=== PATIENT | male | born 1995 | race African-American/Black ===

== ENCOUNTER 2019-05-05 17:36 | Inpatient (IN) ==
[2019-05-05 18:03] LABS: Basophils # 0.1 K/mcL (0.0-0.2); Basophils % 1.5 %; Hematocrit 46.3 % (37.5-50.1); Hemoglobin 15.9 g/dL (12.9-16.9); Immature Granulocytes % 0.3 % (0-4); Immature Platelets 7.1 % (1.1-6.1); Lymphocytes # 1.4 K/mcL (0.6-4.6); Lymphocytes % 34.8 %; Mean Corpuscular HGB Conc 34.3 g/dL (31.6-35.5); Mean Corpuscular Hemoglobin 29.9 pg (28.0-33.3); Mean Corpuscular Volume 87.2 fL (83.0-100.0); Mean Platelet Volume 11.2 fL (9.4-12.4); Monocytes # 0.3 K/mcL (0.0-1.3); Monocytes % 7.9 %; Neutrophils # 2.1 K/mcL (1.6-8.9); Platelet Count 196 K/mcL (140-400); Red Blood Count 5.31 M/mcL (4.19-5.50); Red Cell Distribution Width 11.8 % (11.5-14.5); Segmented Neutrophils % 54.5 %; White Blood Count 3.9 K/mcL (4.3-11.1)
[2019-05-05 18:08] LABS: INR 1.2; Prothrombin Time 13.9 Seconds (9.4-12.1)
[2019-05-05 18:10] LABS: Activated Partial Thrombo Time 38.8 Seconds (26.0-36.0)
[2019-05-05 18:31] LABS: Alanine Aminotransferase 14 Units/L (7-52); Albumin 4.5 g/dL (3.5-5.7); Alkaline Phosphatase 45 Units/L (34-104); Aspartate Amino Transferase 15 Units/L (13-39); BUN/Creatinine Ratio 15 (6-26); Bilirubin,Direct 0.1 mg/dL (0.0-0.2); Bilirubin,Indirect 0.6 mg/dL (0.0-1.0); Bilirubin,Total 0.7 mg/dL (0.3-1.0); Blood Urea Nitrogen 15 mg/dL (6-20); Calcium 9.3 mg/dL (8.6-10.3); Carbon Dioxide 25 mEq/L (23-29); Chloride 103 mEq/L (98-107); Creatine Kinase 99 Units/L (30-223); Ethanol < 10 mg/dL (Less than 10); Globulin 2.2 g/dL (2.4-3.5); Glucose 134 mg/dL (70-105); Osmolality,Calculated 287 (280-300); Potassium 3.8 mEq/L (3.5-5.1); Sodium 137 mEq/L (136-145); Total Protein 6.7 g/dL (6.4-8.9); Troponin I < 0.03 ng/mL (< 0.04); eGFR For African Americans > 60 (> 60); eGFR For Non-African Americans > 60 (> 60)
[2019-05-05 18:40] LABS: Thyroid Stimulating Hormone 0.862 mcIU/mL (0.340-5.600)
[2019-05-05] MEDS ORDERED: Ammonia Inhalant AMPUL ONE (18:59)
[2019-05-05 19:10] LABS: Acetaminophen < 10 mcg/mL (10-20); Salicylate < 2.5 mg/dL (15.0-30.0)
[2019-05-05 19:57] LABS: Amphetamine Screen,Urine Negative ng/mL (Cutoff=1000); Barbiturate Screen,Urine Negative ng/mL (Cutoff=200); Benzodiazepines Screen,Urine Negative ng/mL (Cutoff=200); Cannabinoid Screen,Urine Negative ng/mL (Cutoff = 50); Cocaine Screen,Urine Negative ng/mL (Cutoff= 300); Opiate Screen,Urine Negative ng/mL (Cutoff=300); Phencyclidine Screen,Urine Negative ng/mL (Cutoff=25)
[2019-05-05 20:05] LABS: Bilirubin,Urine Negative (Negative); Blood,Urine Negative (Negative); Clarity,Urine Cloudy (Clear); Color,Urine Yellow (Yellow); Glucose,Urine (UA) Normal (Normal); Ketones,Urine Negative (Negative)
[2019-05-05 20:06] LABS: Leukocyte Esterase,Urine Moderate (Negative); Nitrite,Urine Negative (Negative); Protein,Urine Negative (Neg-Trace); Squamous Epithelial Cell,Urine Many per lpf (None-Few); Urobilinogen,Urine Normal (Normal); WBC,Urine 15-30 per hpf (0-3)
[2019-05-05 20:56] LABS: Bacteria,Urine None Seen per hpf (None-Few)
[2019-05-05] MEDS ORDERED: Ammonia Inhalant AMPUL IH ONE (21:10)
[2019-05-05] MEDS ORDERED: 0.9 % Sodium Chloride 1,000 ML ONE (23:51)
[2019-05-05] MEDS ORDERED: Naloxone 0.4 MG/ML INJ IVP ONE (23:54)
[2019-05-06] MEDS ORDERED: Ondansetron 4 MG/2 ML VIAL IVP PRN (01:01)
[2019-05-06] MEDS ORDERED: Naloxone 0.4 MG/ML INJ IVP PRN (01:01)
[2019-05-06] MEDS: 0.9 % Sodium Chloride 1,000 ML IVC SCH ×2 (01:31→08:38)
[2019-05-06] MEDS ORDERED: Lactulose 200 GM, Sodium Chloride IRRigation 700 ML RC ONE (01:50)
[2019-05-06 01:51] LABS: Hematocrit 44.5 % (37.5-50.1); Hemoglobin 15.5 g/dL (12.9-16.9); Mean Corpuscular HGB Conc 34.8 g/dL (31.6-35.5); Mean Corpuscular Hemoglobin 30.1 pg (28.0-33.3); Mean Corpuscular Volume 86.4 fL (83.0-100.0); Mean Platelet Volume 11.7 fL (9.4-12.4); Platelet Count 219 K/mcL (140-400); Red Blood Count 5.15 M/mcL (4.19-5.50); Red Cell Distribution Width 11.9 % (11.5-14.5); White Blood Count 3.9 K/mcL (4.3-11.1)
[2019-05-06 02:09] LABS: BUN/Creatinine Ratio 16 (6-26); Blood Urea Nitrogen 15 mg/dL (6-20); Calcium 9.1 mg/dL (8.6-10.3); Carbon Dioxide 26 mEq/L (23-29); Chloride 105 mEq/L (98-107); Chol/HDL Ratio 2.6 (0-4.9); Cholesterol 128 mg/dL (< 200); Glucose 83 mg/dL (70-105); HDL Cholesterol 50 mg/dL (40-59); LDL Cholesterol,Calculated 69 mg/dL (0-99); Magnesium 1.8 mg/dL (1.6-2.6); Osmolality,Calculated 286 (280-300); Phosphorous 4.7 mg/dL (2.7-4.5); Potassium 3.8 mEq/L (3.5-5.1); Sodium 138 mEq/L (136-145); Triglycerides 46 mg/dL (< 150); Troponin I < 0.03 ng/mL (< 0.04); eGFR For African Americans > 60 (> 60); eGFR For Non-African Americans > 60 (> 60)
[2019-05-07 05:36] LABS: Hematocrit 41.7 % (37.5-50.1); Mean Corpuscular HGB Conc 33.1 g/dL (31.6-35.5); Mean Corpuscular Hemoglobin 29.6 pg (28.0-33.3); Mean Corpuscular Volume 89.3 fL (83.0-100.0); Mean Platelet Volume 11.5 fL (9.4-12.4); Platelet Count 196 K/mcL (140-400); Red Blood Count 4.67 M/mcL (4.19-5.50); Red Cell Distribution Width 11.7 % (11.5-14.5); White Blood Count 3.3 K/mcL (4.3-11.1)
[2019-05-07 05:39] LABS: Hemoglobin 13.8 g/dL (12.9-16.9)
[2019-05-07 05:54] LABS: BUN/Creatinine Ratio 17 (6-26); Blood Urea Nitrogen 18 mg/dL (6-20); Calcium 8.9 mg/dL (8.6-10.3); Carbon Dioxide 27 mEq/L (23-29); Chloride 102 mEq/L (98-107); Glucose 92 mg/dL (70-105); Osmolality,Calculated 284 (280-300); Potassium 4.2 mEq/L (3.5-5.1); Sodium 136 mEq/L (136-145); eGFR For African Americans > 60 (> 60); eGFR For Non-African Americans > 60 (> 60)
[2019-05-07 08:15] LABS: Eosinophils # 0.1 K/mcL (0.0-0.6)
[2019-05-07 08:19] LABS: Lymphocytes # 2.2 K/mcL (0.6-4.6)
[2019-05-07 08:41] LABS: Monocytes # 0.2 K/mcL (0.0-1.3); Neutrophils # 0.8 K/mcL (1.6-8.9)
[2019-05-07 08:43] LABS: Platelet Estimate Normal (Normal)
[2019-05-07 11:36] VITALS: BP 108/66
[2019-05-07 13:44] LABS: Basophils # 0.1 K/mcL (0.0-0.2); Basophils % 2.2 %; Eosinophils # 0.1 K/mcL (0.0-0.6); Eosinophils % 2.9 %; Hematocrit 46.7 % (37.5-50.1); Hemoglobin 15.2 g/dL (12.9-16.9); Lymphocytes # 1.4 K/mcL (0.6-4.6); Mean Corpuscular HGB Conc 32.5 g/dL (31.6-35.5); Mean Corpuscular Hemoglobin 29.6 pg (28.0-33.3); Mean Corpuscular Volume 90.9 fL (83.0-100.0); Mean Platelet Volume 11.2 fL (9.4-12.4); Monocytes # 0.3 K/mcL (0.0-1.3); Neutrophils # 0.9 K/mcL (1.6-8.9); Platelet Count 208 K/mcL (140-400); Red Blood Count 5.14 M/mcL (4.19-5.50); Red Cell Distribution Width 11.8 % (11.5-14.5); Segmented Neutrophils % 30.9 %; White Blood Count 2.8 K/mcL (4.3-11.1)
[2019-05-07 17:09] LABS: Immature Reticulocyte % 1.4 % (11.0-38.0); Retculocyte # 0.03 M/mcL (0.05-0.10); Reticulocyte % 0.5 % (1.6-2.8)
[2019-05-07 17:53] LABS: Folate 9.3 ng/mL (3.0-16.0)
[2019-05-07 17:54] LABS: Vitamin B12 445 pg/mL (250-1100)
[2019-05-07 18:28] LABS: Hepatitis B Surface Antigen Nonreactive (Nonreactive)
[2019-05-07 18:57] LABS: Hepatitis B Core IgM Nonreactive (Nonreactive); Hepatitis C Virus Antibody Nonreactive (Nonreactive)
[2019-05-07 18:58] LABS: HIV-1&2 Antibody & p24 Ag Nonreactive (Nonreactive)
[2019-05-07 20:53] LABS: Hepatitis A Antibody IgM Nonreactive (Nonreactive)
== END 2019-05-07 19:26 | disposition other institution (70) | DRG 948 ==
LOC: EMEROOARM 17:36 → 3BNU 17:36
PROVIDERS: ADMIT Internal Medicine; ATTEND Internal Medicine

== ENCOUNTER 2019-05-07 18:35 | Inpatient (IN) ==
[2019-05-07] MEDS ORDERED: MOM Conc 10 ML UD.LIQ PO PRN (18:37)
[2019-05-07] MEDS ORDERED: Mag Hydrox/Al Hydrox/Simeth 30 ML UDC PO PRN (18:37)
[2019-05-07] MEDS ORDERED: Haloperidol Lactate 5 MG/ML VIAL IM PRN (18:37)
[2019-05-07] MEDS ORDERED: Ibuprofen 400 MG TABLET PO PRN (18:37)
[2019-05-07] MEDS ORDERED: *HR* LORazepam 2 MG/ML VIAL IM PRN (18:37)
[2019-05-07] MEDS: *HR* LORazepam 1 MG TABLET PO PRN (19:31)
[2019-05-07] MEDS: hydrOXYzine pamoate 25 MG CAPSULE PO PRN (21:29)
[2019-05-08] MEDS ORDERED: *HR* LORazepam 1 MG TABLET PO ONE (11:04)
[2019-05-08] MEDS: *HR* LORazepam 1 MG TABLET PO PRN (17:06)
[2019-05-08] MEDS: hydrOXYzine pamoate 25 MG CAPSULE PO PRN (17:06)
[2019-05-08 20:00] VITALS: BP 128/79
[2019-05-08] MEDS ORDERED: risperiDONE 1 MG TABLET PO SCH (21:00)
== END 2019-05-09 11:50 | disposition home or self-care (01) | DRG 885 ==
LOC: 1ANU 18:35
PROVIDERS: ADMIT Psychiatry & Neurology Psychiatry; ATTEND Psychiatry & Neurology Psychiatry